=== PATIENT | female | born 1995 | race African-American/Black ===

== ENCOUNTER 2020-11-13 12:35 | Emergency (ER) | payer BC, OTHER ==
[~2020-11-13] VITALS: Ht 157.5 cm; Wt 48.0 kg
[2020-11-13 12:57] VITALS: BP 107/63
[2020-11-13] MEDS ORDERED: MORPHINE SULFATE 4 MG/ML CPJ (NOT FOR IM USE) IV STA (13:02)
[2020-11-13] MEDS ORDERED: ONDANSETRON HCL 4MG/2ML INJ IV STA (13:02)
[2020-11-13 13:16] LABS: BASOPHILS % 0.8 % (0.0-2.0); EOSINOPHILS % 0.8 % (0.0-5.0); HEMATOCRIT. 36.9 % (36.0-48.0); HEMOGLOBIN. 12.2 g/dL (12.0-16.0); LYMPHOCYTES % 21.9 % (20.0-50.0); MEAN CORPUSCULAR HEMOGLOBIN 26.7 pg (28.0-32.0); MEAN CORPUSCULAR VOLUME 80.6 fL (81.0-99.0); MONOCYTES % 5.3 % (2.0-8.0); NEUTROPHILS % 71.2 % (40.0-76.0); PLATELET 301 x1000/uL (130-400); RED BLOOD CELL COUNT 4.57 mill/uL (4.2-5.4); RED CELL DISTRIBUTION WIDTH 12.9 % (11.6-14.6)
[2020-11-13 13:22] LABS: CHLORIDE 107 mEq/L (98-107)
[2020-11-13 13:46] LABS: B-HCG QUANTITATIVE 11362 mIU/mL (<3)
== END 2020-11-13 17:22 | disposition home or self-care (01) ==
LOC: ER 12:35
DX: O36.4XX0 Maternal care for intrauterine death, not applicable or unspecified (principal); Z3A.08 8 weeks gestation of pregnancy
CPT/HCPCS: 36415; 76801; 80053; 81025; 84702; 85025; 86850; 86900; 86901; 99284; Z7610

== ENCOUNTER 2022-03-24 05:31 | Emergency (ER) | payer BC, MEDICAID ==
[~2022-03-24] VITALS: Ht 162.6 cm; Wt 74.6 kg
[2022-03-24 10:18] LABS: CLARITY URINE CLEAR (CLEAR); COLOR URINE YELLOW (YELLOW); KETONES URINE TRACE (NEGATIVE); LEUKOCYTE ESTERASE URINE 3+ (NEGATIVE); NITRITE URINE NEGATIVE (NEGATIVE); OCCULT BLOOD URINE NEGATIVE (NEGATIVE); PROTEIN URINE NEGATIVE (NEGATIVE); SPECIFIC GRAVITY URINE 1.011 (1.005-1.030)
[2022-03-24] MEDS ORDERED: TOPUD PO (10:23)
[2022-03-24] MEDS ORDERED: NITR100C PO (10:23)
[2022-03-24 11:09] VITALS: BP 116/86
== END 2022-03-24 11:11 | disposition home or self-care (01) ==
LOC: ER 05:31
DX: N39.0 Urinary tract infection, site not specified (principal); R10.9 Unspecified abdominal pain
CPT/HCPCS: 81003; 81025; 99283

== ENCOUNTER 2022-09-25 17:14 | Emergency (ER) | payer BC, MEDICAID, OTHER ==
[~2022-09-25] VITALS: Ht 165.1 cm; Wt 60.0 kg
[~2022-09-25 17:14] MED LIST: NITR100C PO; TOPUD PO
[2022-09-25 17:26] VITALS: BP 133/88
[2022-09-25 22:00] LABS: CLARITY URINE CLEAR (CLEAR); COLOR URINE DARK YELLOW (YELLOW); KETONES URINE 1+ (NEGATIVE); LEUKOCYTE ESTERASE URINE 1+ (NEGATIVE); NITRITE URINE NEGATIVE (NEGATIVE); OCCULT BLOOD URINE NEGATIVE (NEGATIVE); PROTEIN URINE TRACE (NEGATIVE); SPECIFIC GRAVITY URINE 1.034 (1.005-1.030)
[2022-09-25 23:20] LABS: CHLORIDE 100 mEq/L (98-107)
[2022-09-25 23:25] LABS: PROTHROMBIN TIME 11.2 sec (9.6-11.0)
[2022-09-25 23:41] LABS: BASOPHILS % 0.2 % (0.0-2.0); EOSINOPHILS % 0.5 % (0.0-5.0); HEMOGLOBIN. 12.6 g/dL (12.0-16.0); LYMPHOCYTES % 22.3 % (20.0-50.0); MEAN CORPUSCULAR HEMOGLOBIN 26.2 pg (28.0-32.0); MEAN CORPUSCULAR VOLUME 79.1 fL (81.0-99.0); MEAN PLATELET VOLUME 8.3 fl (7.4-10.4); MONOCYTES % 8.7 % (2.0-8.0); NEUTROPHILS % 68.3 % (40.0-76.0); PLATELET 386 x1000/uL (130-400); RED BLOOD CELL COUNT 4.81 mill/uL (4.2-5.4); RED CELL DISTRIBUTION WIDTH 15.2 % (11.6-14.6)
[2022-09-25 23:51] LABS: HCG SCREEN NEGATIVE
[2022-09-26] MEDS ORDERED: CEPH500C2 MT (00:52)
[2022-09-26] MEDS ORDERED: IBUP-2029 MT (00:52)
[2022-09-26] MEDS ORDERED: DOXY100C5 MT (22:25)
[2022-09-28 04:08] LABS: NEISSERIA GONORRHOEAE NAA Negative (Negative)
== END 2022-09-26 01:26 | disposition home or self-care (01) ==
LOC: ER 17:14
DX: N83.9 Noninflammatory disorder of ovary, fallopian tube and broad ligament, unspecified (principal); N39.0 Urinary tract infection, site not specified
CPT/HCPCS: 36415; 76830; 76856; 80053; 81003; 81025; 84703; 85025; 85610; 87491; 87591; 99284; Z7610; A4565

== ENCOUNTER 2022-09-26 18:04 | Emergency (ER) | payer MEDICAID ==
[~2022-09-26] VITALS: Ht 162.6 cm; Wt 68.0 kg
[~2022-09-26 18:04] MED LIST changes: +CEPH500C2 MT; +IBUP-2029 MT
[2022-09-26] MEDS ORDERED: IBUPROFEN 400MG TABLET PO NR (20:00)
[2022-09-26] MEDS ORDERED: ACETAMINOPHEN 325MG TABLET PO NR (20:00)
[2022-09-26] MEDS ORDERED: ACETAMINOPHEN 325MG TABLET PO ONE (20:00)
[2022-09-26] MEDS ORDERED: IBUPROFEN 400MG TABLET PO ONE (20:00)
[2022-09-26] MEDS ORDERED: CEFTRIAXONE SODIUM 500 MG/VIAL IM ONE (22:00)
[2022-09-26] MEDS ORDERED: DOXY100C5 MT (22:25)
[2022-09-26 23:34] VITALS: BP 136/81
== END 2022-09-26 23:37 | disposition home or self-care (01) ==
LOC: ER 18:04
DX: R10.9 Unspecified abdominal pain (principal)
CPT/HCPCS: 76830; 76856; 96372; 99285; J0696